=== PATIENT | female | born 1960 | race Caucasian/White ===

== ENCOUNTER 2024-07-19 11:04 | Emergency (ER) | payer OTHER ==
[~2024-07-19] VITALS: Ht 167.6 cm; Wt 62.1 kg
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
--- NOTE | 2024-07-19 12:22 | HMCIMG ---
Exam Type: CLAVICLE LEFT Clinical Information: r/o fx Comparison: None Findings: The bone examination is unremarkable. No fractures or dislocations are seen. No radiopaque foreign bodies are noted. Soft tissues are preserved. IMPRESSION: Normal examination.
--- NOTE | 2024-07-19 12:24 | EKG ---
[facility] Test Date: 2024-07-19 Test Time: 12:21:41 Pat Name: DONAL TIPTON Department: [facility] Room: Gender: F Radiologic Technologist Chief: [id number] : 1960 Requested By: IRVING JEFFRIES Order Number: [id number] Reading MD: Ramiro Valderrama Measurements Intervals [place] Rate: 76 P: 69 SC: 135 QRS: 66 QRSD: 109 T: 72 QT: 472 QTc: 532 Interpretive Statements Sinus rhythm Probable left atrial enlargement LVH with secondary repolarization abnormality Prolonged QT interval No previous ECG available for comparison Electronically Signed On 07-19-2024 13:37:32 CDT by Ramiro Valderrama Please click the below link to view image of tracing.
[2024-07-19] MEDS ORDERED: KETO10TA2 PO (12:37)
[2024-07-19] MEDS ORDERED: CYCL10TA16 PO (12:37)
[2024-07-19] MEDS: HYDROcodone/APAP 5/325 1 TAB TABLET PO ONE (12:38)
[2024-07-19 12:43] VITALS: BP 164/88; PULSE 88; RESP 16; TEMP 98.1; O2SAT 99
== END 2024-07-19 13:02 | disposition home or self-care (01) ==
LOC: EDH 11:04
DX: S16.1XXA Strain of muscle, fascia and tendon at neck level, initial encounter (principal); S46.911A Strain of unspecified muscle, fascia and tendon at shoulder and upper arm level, right arm, initial encounter; E78.00 Pure hypercholesterolemia, unspecified; I10 Essential (primary) hypertension; V89.2XXA Person injured in unspecified motor-vehicle accident, traffic, initial encounter; Y93.89 Activity, other specified; Y92.89 Other specified places as the place of occurrence of the external cause; Y99.8 Other external cause status
CPT/HCPCS: 71045; 73000; 73030; 93005; 99284